=== PATIENT | male | born 2000 | race Caucasian/White ===

== ENCOUNTER → 2021-11-23 | Outpatient (CLI) | payer SELFPAY | LOC: KOH-I 15:47 | DX: M25.571 Pain in right ankle and joints of right foot (principal); S92.351A Displaced fracture of fifth metatarsal bone, right foot, initial encounter for closed fracture | CPT/HCPCS: 73610; 73630 ==

== ENCOUNTER → 2021-12-14 | Outpatient (CLI) | payer SELFPAY | LOC: KOH-I 13:19 | DX: S92.351A Displaced fracture of fifth metatarsal bone, right foot, initial encounter for closed fracture (principal) | CPT/HCPCS: 73630 ==